=== PATIENT | male | born 1940 | race Caucasian/White ===

== ENCOUNTER 2016-09-04 21:25 | Inpatient (IN) | payer BC, OTHER ==
[~2016-09-04] VITALS: Ht 154.9 cm; Wt 44.1 kg
[2016-09-04 23:30] VITALS: BP_SYST 136; RESP 18; TEMP 97.5; BMI 18.4
[2016-09-04] MEDS ORDERED: ACETAMINOPHEN 325 MG TAB PO PRN (23:55)
[2016-09-04] MEDS ORDERED: MAG HYDROX 30 ML UDC PO PRN (23:55)
[2016-09-04] MEDS ORDERED: SALINE FLUSH 10 ML FLUSH PRN (23:55)
[2016-09-04] MEDS ORDERED: BISACODYL EC 5 MG TAB PO PRN (23:55)
[2016-09-04] MEDS ORDERED: ALU/MAG/SIM 30 ML UDC PO PRN (23:55)
[2016-09-04] MEDS ORDERED: TEMAZEPAM 7.5 MG CAP PO PRN (23:55)
[2016-09-04] MEDS ORDERED: BISACODYL 10 MG SUPP RECTAL PRN (23:55)
[2016-09-05] VITALS (7 sets, daily range): BP systolic 122–148; RESP 18–20; TEMP 97.1–98.3; Ht 154.9 cm; Wt 44.1 kg
[2016-09-05] MEDS: DUONEB INH SCH ×6 (02:35→23:18)
[2016-09-05] MEDS: SODIUM CHLORIDE 0.9% FLUSH BAG 500 ML IV SCH (03:54)
[2016-09-05] MEDS: SODIUM CHLORIDE 0.9% 1,000 ML IV SCH ×2 (06:33→20:24)
[2016-09-05] MEDS: SALINE FLUSH 10 ML FLUSH SCH ×2 (08:00→20:00)
[2016-09-05] MEDS: ASPIRIN 81 MG CHEW TAB PO SCH (15:36)
[2016-09-05] MEDS: FLUTICASONE 0.05% NA BTL NARE EACH SCH (15:36)
[2016-09-05] MEDS: FOLIC ACID 1 MG TAB PO SCH (15:36)
[2016-09-05] MEDS: CLOPIDOGREL 75 MG TAB PO SCH (15:36)
[2016-09-05] MEDS: PANTOPRAZOLE 40 MG TAB PO SCH (15:36)
[2016-09-05] MEDS: METOPROLOL TART 50 MG TAB PO SCH (20:24)
[2016-09-05] MEDS: MICONAZOLE 2% PWD TOPICAL SCH (20:28)
[2016-09-06] MEDS: DUONEB INH SCH ×6 (02:13→23:03)
[2016-09-06 03:37] VITALS: BP_SYST 145; RESP 18; TEMP 97.3
[2016-09-06] MEDS: SODIUM CHLORIDE 0.9% 1,000 ML IV SCH ×2 (04:08→13:50)
[2016-09-06] MEDS: LEVOTHYROXINE 0.05 MG TAB PO SCH (04:08)
[2016-09-06] MEDS: SODIUM CHLORIDE 0.9% FLUSH BAG 500 ML IV SCH ×2 (04:12→21:26)
[2016-09-06 07:52] VITALS: BP_SYST 146; RESP 18; TEMP 97.8
[2016-09-06] MEDS: MICONAZOLE 2% PWD TOPICAL SCH ×2 (08:07→21:26)
[2016-09-06] MEDS: FLUTICASONE 0.05% NA BTL NARE EACH SCH (08:07)
[2016-09-06] MEDS: SALINE FLUSH 10 ML FLUSH SCH ×2 (08:07→20:00)
[2016-09-06] MEDS: METOPROLOL TART 50 MG TAB PO SCH ×2 (08:08→21:22)
[2016-09-06] MEDS: ASPIRIN 81 MG CHEW TAB PO SCH (08:08)
[2016-09-06] MEDS: FOLIC ACID 1 MG TAB PO SCH (08:08)
[2016-09-06] MEDS: CLOPIDOGREL 75 MG TAB PO SCH (08:08)
[2016-09-06] MEDS: PANTOPRAZOLE 40 MG TAB PO SCH (08:08)
[2016-09-06] MEDS ORDERED: DEXTROSE 50% SYRINGE 50 ML IV PRN (11:20)
[2016-09-06] MEDS ORDERED: GLUCAGON 1 MG VIAL IM PRN (11:20)
[2016-09-06 11:48] VITALS: BP_SYST 148; RESP 18; TEMP 97.6
[2016-09-06] MEDS ORDERED: PHARMACY TO DOSE XX SCH (18:30)
[2016-09-06] MEDS ORDERED: ENOXAPARIN 40 MG/0.4 ML SYR SUBQ SCH (19:00)
[2016-09-06 19:57] VITALS: BP_SYST 169; RESP 16; TEMP 97.5
[2016-09-06 23:17] VITALS: BP_SYST 154; RESP 16; TEMP 98
[2016-09-07] MEDS: SODIUM CHLORIDE 0.9% 1,000 ML IV SCH (01:44)
[2016-09-07] MEDS: DUONEB INH SCH ×6 (02:24→23:36)
[2016-09-07 03:11] VITALS: BP_SYST 158; RESP 16; TEMP 98.1
[2016-09-07] MEDS: LEVOTHYROXINE 0.05 MG TAB PO SCH (06:41)
[2016-09-07 07:28] VITALS: BP_SYST 167; RESP 16; TEMP 97.9
[2016-09-07] MEDS: SALINE FLUSH 10 ML FLUSH SCH ×2 (07:59→22:07)
[2016-09-07] MEDS: FLUTICASONE 0.05% NA BTL NARE EACH SCH ×2 (08:05→22:06)
[2016-09-07] MEDS: ASPIRIN 81 MG CHEW TAB PO SCH (08:05)
[2016-09-07] MEDS: FOLIC ACID 1 MG TAB PO SCH (08:05)
[2016-09-07] MEDS: MICONAZOLE 2% PWD TOPICAL SCH ×2 (08:05→22:08)
[2016-09-07] MEDS: METOPROLOL TART 50 MG TAB PO SCH ×2 (08:05→22:06)
[2016-09-07] MEDS: CLOPIDOGREL 75 MG TAB PO SCH (08:06)
[2016-09-07] MEDS: PANTOPRAZOLE 40 MG TAB PO SCH (08:06)
[2016-09-07] MEDS ORDERED: SODIUM CHLORIDE 0.9% 1,000 ML IV SCH (09:00)
[2016-09-07] MEDS ORDERED: MISSING DOSE XX ONE ×2 (09:20→10:20)
[2016-09-07] MEDS: amLODIPine 10 MG TAB PO SCH (09:40)
[2016-09-07] MEDS ORDERED: AZITHROMYCIN 250 MG TAB PO ONE (10:00)
[2016-09-07 11:51] VITALS: BP_SYST 154; RESP 16; TEMP 98.4
[2016-09-07 15:06] VITALS: BP_SYST 155; RESP 18; TEMP 97.7
[2016-09-07 20:35] VITALS: BP_SYST 167; RESP 18; TEMP 97
[2016-09-08] VITALS (8 sets, daily range): BP systolic 132–152; RESP 16–18; TEMP 97.5–98.1
[2016-09-08] MEDS: DUONEB INH SCH ×5 (02:27→18:17)
[2016-09-08] MEDS: SODIUM CHLORIDE 0.9% FLUSH BAG 500 ML IV SCH (06:00)
[2016-09-08] MEDS: LEVOTHYROXINE 0.05 MG TAB PO SCH (06:27)
[2016-09-08] MEDS: SALINE FLUSH 10 ML FLUSH SCH (08:32)
[2016-09-08] MEDS: FLUTICASONE 0.05% NA BTL NARE EACH SCH (08:32)
[2016-09-08] MEDS: ASPIRIN 81 MG CHEW TAB PO SCH (08:33)
[2016-09-08] MEDS: CLOPIDOGREL 75 MG TAB PO SCH (08:33)
[2016-09-08] MEDS: METOPROLOL TART 50 MG TAB PO SCH (08:33)
[2016-09-08] MEDS: FOLIC ACID 1 MG TAB PO SCH (08:33)
[2016-09-08] MEDS: amLODIPine 10 MG TAB PO SCH (08:33)
[2016-09-08] MEDS: PANTOPRAZOLE 40 MG TAB PO SCH (08:33)
[2016-09-08] MEDS ORDERED: BACITRACIN OINT TOPICAL SCH (09:00)
[2016-09-08] MEDS ORDERED: AZITHROMYCIN 250 MG TAB PO SCH (09:00)
[2016-09-08] MEDS: MICONAZOLE 2% PWD TOPICAL SCH (09:31)
== END 2016-09-08 22:13 | DRG 683 ==
LOC: ENRESERVTM → ENRESERV → ENRESERVDT → PCU 23:33 → ENPENDDIS 23:33
PROVIDERS: ADMIT Hospitalist; ATTEND Hospitalist
CPT/HCPCS: 71020; 76700; 78582; 80053; 82947; 83036; 85025; 85379; 86704; 86705; 86706; 86708; 86709; 94640; 94799; 99233; 99238